=== PATIENT | female | born 1960 | race Caucasian/White ===

== ENCOUNTER 2020-11-08 10:51 | Outpatient (CLI) | payer MEDICARE, OTHER ==
--- NOTE | 2020-11-08 11:45 | XRAY Report ---
PROCEDURE: Foot 3 View RT INDICATIONS: PAIN IN RIGHT FOOT TECHNIQUE: 3 views of the foot were acquired. COMPARISON: None. FINDINGS: No acute fracture seen. Mild first MTP and diffuse interphalangeal joint degeneration. Large posterio r calcaneal spur. Soft tissues: No tibiotalar joint effusion. Achilles tendon appears normal. IMPRESSION: Chronic degenerative changes as above If the patient's pain or other symptoms persist, consider further evaluation with MRI. Reviewed by: Sudheer Alvarez MD on 11/08/2020 11:44 AM PDT Approved by: Sudheer Alvarez MD on 11/08/2020 11:44 AM PDT Station ID: [id number]
== END 2020-11-08 23:59 | disposition home or self-care (01) ==
LOC: DI.N 10:51
PROVIDERS: ATTEND Physician Assistant Medical
DX: M19.071 Primary osteoarthritis, right ankle and foot (principal); M77.31 Calcaneal spur, right foot

== ENCOUNTER 2021-04-07 08:00 | Outpatient (CLI) | payer MEDICARE, OTHER | END 2021-04-07 23:59 | disposition home or self-care (01) | LOC: LAB.N 08:00 | PROVIDERS: ATTEND Physician Assistant Medical | DX: U07.1 COVID-19 (principal) ==

== ENCOUNTER 2021-09-05 08:00 | Outpatient (CLI) | payer MEDICARE, OTHER | END 2021-09-05 23:59 | disposition home or self-care (01) | LOC: LAB.N 08:00 | PROVIDERS: ATTEND Nurse Practitioner | DX: N39.0 Urinary tract infection, site not specified (principal) | CPT/HCPCS: 87077; 87086; 87181 ==

== ENCOUNTER 2022-02-24 09:49 | Outpatient (CLI) | payer MEDICARE, OTHER ==
--- NOTE | 2022-02-24 15:57 | DEXA Report ---
PROCEDURE: Dexa Spine and/or Hip INDICATIONS: POST MENOPAUSAL TECHNIQUE: Dual energy x-ray absorptiometry (DXA) was performed on a [employer] System. Regions measur ed are the AP Spine, femoral neck, and if needed forearm. COMPARISON: None. FINDINGS: Lumbar Spine: Bone Mineral Density 1.213 g/cm/cm,T score 0.4 Left Hip: Bone Mineral Density 0.871 g/cm/cm,T score -1.1 Left Femoral Neck: Bone Mineral Density 0.663 g/cm/cm, T score ,2.7 (T score greater or equal to -1.0: NORMAL) (T score from -1.1 to -2.4: OSTEOPENIA) (T score less than or equal to -2.5 to: OSTEOPOROSIS) Impression: Osteopenia of the left hip and osteoporosis of the left femoral neck. Patients with diagnosis of osteoporosis or osteopenia should have regular bone mineral density assess ment. For those eligible for Medicare, routine testing is allowed once every 2 years. Testing frequ ency can be increased for patients who have rapidly progressing disease or for those who are receivin g medical therapy to restore bone mass. Reviewed by: Shayna Boswell MD on 02/24/2022 3:56 PM PDT Approved by: Shayna Boswell MD on 02/24/2022 3:56 PM PDT Station ID: [id number]
== END 2022-02-24 09:50 | disposition home or self-care (01) ==
LOC: DI 09:49
PROVIDERS: ATTEND Nurse Practitioner Family
DX: M81.0 Age-related osteoporosis without current pathological fracture (principal); Z78.0 Asymptomatic menopausal state; Z90.710 Acquired absence of both cervix and uterus

== ENCOUNTER 2024-01-26 07:15 | Outpatient (CLI) | payer MEDICARE, OTHER | END 2024-01-26 07:30 | disposition home or self-care (01) | LOC: LAB.N 07:15 | PROVIDERS: ATTEND Physician Assistant Medical | DX: N39.0 Urinary tract infection, site not specified (principal) | CPT/HCPCS: 87086 ==

== ENCOUNTER 2024-02-17 07:15 | Outpatient (CLI) | payer MEDICARE, OTHER ==
[2024-02-17 18:53] LABS: BILIRUBIN,URINE NEGATIVE (NEGATIVE); GLUCOSE, URINE (UA) NEGATIVE (NEGATIVE); KETONES,URINE (UA) NEGATIVE (NEGATIVE); LEUKOCYTE ESTERASE, URINE SMALL (NEGATIVE); NITRITE,URINE POSITIVE (NEGATIVE); OCCULT BLOOD,URINE TRACE-INTA (NEGATIVE); PROTEIN,URINE TRACE mg/dL (NEGATIVE); UROBILINOGEN,URINE 1 (NORMAL) E.U./dL (NORMAL)
[2024-02-17 19:48] LABS: BACTERIA,URINE Many /HPF (None Seen); CLARITY,URINE CLEAR (CLEAR); CRYSTALS,URINE 6-10 Calcium Oxalate /LPF; SQUAMOUS EPITHELIAL CELL,UR RARE Squamous (<= Few); WBC,URINE >25 /HPF (0-5)
== END 2024-02-17 07:30 | disposition home or self-care (01) ==
LOC: LAB.N 07:15
PROVIDERS: ATTEND Physician Assistant Medical
DX: R30.0 Dysuria (principal)
CPT/HCPCS: 81001; 87086